=== PATIENT | male | born 2000 | race African-American/Black ===

== ENCOUNTER 2021-07-09 23:02 | Emergency (ER) | payer MEDICAID ==
[~2021-07-09] VITALS: Ht 175.3 cm; Wt 70.0 kg
[2021-07-09] MEDS ORDERED: MORPHINE SULFATE 4 MG/ML CPJ (NOT FOR IM USE) IV STA (23:09)
[2021-07-09] MEDS ORDERED: ONDANSETRON HCL 4MG/2ML INJ IV STA (23:09)
[2021-07-09] MEDS ORDERED: TETANUS, DIPHTHERIA, PERTUSSIS VAC/PF 0.5ML (>10YR OLD) IM ONE (23:15)
[2021-07-09] MEDS ORDERED: CEFAZOLIN 1000MG PREMIX 50 ML IV ONE (23:15)
[2021-07-09] MEDS ORDERED: SODIUM CHLORIDE 0.9% 1,000 ML IV ONE (23:15)
[2021-07-09 23:23] VITALS: BP 109/66
== END 2021-07-09 23:29 | disposition short-term general hospital (02) ==
LOC: ER 23:02
DX: S51.812A Laceration without foreign body of left forearm, initial encounter (principal); X58.XXXA Exposure to other specified factors, initial encounter; Y93.89 Activity, other specified; Y92.89 Other specified places as the place of occurrence of the external cause; Y99.8 Other external cause status; F10.229 Alcohol dependence with intoxication, unspecified; Y90.0 Blood alcohol level of less than 20 mg/100 ml
CPT/HCPCS: 90471; 90715; 96374; 96375; 99291; J2270; J2405; J7030